=== PATIENT | female | born 1965 | race Caucasian/White ===

== ENCOUNTER 2017-03-18 07:33 | Day surgery (SDC) | payer OTHER ==
[2017-03-18] MEDS ORDERED: Midazolam 1 MG/ML 2 ML SDV ONE (07:49)
[2017-03-18] MEDS ORDERED: fentaNYL 100 MCG/2 ML SDV ONE (07:49)
[2017-03-18] MEDS ORDERED: Propofol 200 MG/20 ML SDV ONE (07:49)
[2017-03-18] MEDS ORDERED: Sodium Chloride 0.9% 1,000 ML IV SCH (08:30)
--- NOTE | 2017-03-18 11:33 | OR ---
DATE OF PROCEDURE: 03/18/2017 PROCEDURE: Colonoscopy. FINDINGS: 1. Descending colon polyp, approximately 8 mm, completely removed using cold biopsy forceps. 2. No other gross abnormalities. COMPLICATIONS: None. MANUFACTURING PROJECT MANAGER: None. PREOPERATIVE DIAGNOSIS: Family history of colorectal cancer. POSTOPERATIVE DIAGNOSIS: Family history of colorectal cancer. RISKS: Risks, benefits, alternatives, limitations including, but not limited to infection, bleeding, and perforation were explained to the patient who wished to proceed. PROCEDURE IN DETAIL: The patient was placed in left lateral decubitus position. Digital rectal exam was performed without abnormality. The scope was introduced and advanced atraumatically to the ileocecal valve. The scope was brought back to the ascending, transverse, descending colon, and retroflexed. The aforementioned polyp was identified and completely removed. No other abnormalities were noted. No colitis. No diverticulosis. No other areas of concern. The patient tolerated the procedure well. Godfrey Haley MD /[id number]
== END 2017-03-18 10:53 | disposition home or self-care (01) ==
LOC: JP.SDS 07:33
PROVIDERS: ATTEND Surgery
DX: Z12.11 Encounter for screening for malignant neoplasm of colon (principal); K63.5 Polyp of colon; Z80.0 Family history of malignant neoplasm of digestive organs
CPT/HCPCS: 45380; J2250; J2704; J3010; J7040; 88305

== ENCOUNTER 2022-07-09 08:45 | Day surgery (SDC) | payer BC ==
[2022-07-09] MEDS ORDERED: Sodium Chloride 0.9% 1,000 ML IV SCH (09:45)
[2022-07-09] MEDS ORDERED: Propofol 200 MG/20 ML SDV ONE (10:01)
[2022-07-09] MEDS ORDERED: fentaNYL 100 MCG/2 ML SDV ONE (10:02)
[2022-07-09] MEDS ORDERED: Midazolam 1 MG/ML 2 ML SDV ONE (10:02)
== END 2022-07-09 12:31 | disposition home or self-care (01) ==
LOC: JP.SDS 08:45
PROVIDERS: ATTEND Surgery
DX: Z12.11 Encounter for screening for malignant neoplasm of colon (principal); E66.9 Obesity, unspecified; Z68.38 Body mass index [BMI] 38.0-38.9, adult
CPT/HCPCS: 45378; J2250; J2704; J3010; J7030